=== PATIENT | female | born 1990 | race Caucasian/White ===

== ENCOUNTER 2016-12-17 19:14 | Emergency (ER) | payer OTHER ==
--- NOTE | 2016-12-17 19:50 | PDOC ---
Rapid Medical Evaluation Time Seen by Provider: 12/17/16 19:41 Medical Evaluation: Allergies Allergy/AdvReac Type Severity Reaction Status Date / Time No Known Allergies Allergy Verified 12/09/14 14:41 12/17/16 19:47 I have performed a brief in-person evaluation of this patient. The patient presents with a chief complaint of: back pain, 3 days of dysuria, + fever Pertinent physical exam findings: + rt cva tenderness, 102.8 in triage I have ordered the following: tylenol po ordered, UA, Ucx, cbc, comp, lactic, blood cx, iv insert The patient will proceed to the ED for further evaluation.
[2016-12-17] MEDS ORDERED: ACETAMINOPHEN 500 MG TABLET (FP) PO ONE (19:52)
[2016-12-17 19:54] VITALS: BMI 23.1
[2016-12-17] MEDS ORDERED: SODIUM CHLORIDE 1,000 ML IV STA ×2 (19:54→22:47)
[2016-12-17 20:16] LABS: BASOPHIL 0.4 % (0-2.0); MCH 29.3 pg (25.7-33.7); MEAN CELL VOLUME 86.2 fl (80-96); MEAN PLT VOLUME 8.1 fl (7.5-11.1); NEUTROPHILS 79.4 % (42.8-82.8); PLATELET COUNT 203 K/MM3 (134-434); RDW 13.9 % (11.6-15.6); WHITE BLOOD COUNT 8.6 K/mm3 (4.0-10.0)
--- NOTE | 2016-12-17 20:18 | PDOC ---
History of Present Illness - General History Source: Patient Exam Limitations: No Limitations - History of Present Illness Initial Comments: 12/17/16 20:22 The patient is a 26 year old female, with no significant past medical history, who presents to the emergency department complaining of burning with urination for approximately 5 days. The patient reports she initially began with dysuria 5 days ago, which resolved the next day. However, 3 days ago, the dysuria reocurred with associated lower back pain. Yesterday, patient reports developing diffuse abdominal pain, subjective fever, and nausea. She denies any associated vomiting, diarrhea, or constipation. She denies any hematuria, frequency, urgency, or vaginal discharge. She denies any chest pain, shortness of breath, diaphoresis, or palpitations. She denies any chills, headache, or dizziness. She denies any history of kidney stones or UTIs. She reports her last menstrual period was about 1 month ago, and she does not think she is . Allergies: NKDA Past Surgical History: None reported Social History: Non smoker. No ETOH or recreational drug use. <Addy Medeiros - Last Filed: 12/17/16 23:16> - General History Source: Patient <BeltranMaryAkhil - Last Filed: 12/18/16 00:06> - General Chief Complaint: Back Pain Stated Complaint: PCP SENT/BACK PAIN Time Seen by Provider: 12/17/16 19:41 Past History <Addy Medeiros - Last Filed: 12/17/16 23:16> - Past Medical History Asthma: No Cancer: No Cardiac Disorders: No COPD: No Diabetes: No HTN: No Seizures: No Thyroid Disease: No - Suicide/Smoking/Psychosocial Hx Smoking History: Never smoked Have you smoked in the past 12 months: No Information on smoking cessation initiated: No Hx Alcohol Use: No Drug/Substance Use Hx: No Substance Use Type: None Hx Substance Use Treatment: No <Akhil Veras - Last Filed: 12/18/16 00:06> - Past Medical History Allergies/Adverse Reactions: Allergies Allergy/AdvReac Type Severity Reaction Status Date / Time No Known Allergies Allergy Verified 12/17/16 19:53 Home Medications: Ambulatory Orders Vit/Iron Fumarate/FA [ Tablet] 1 each PO DAILY 12/09/14 Acetaminophen [Tylenol .Regular Strength -] 650 mg PO Q3H PRN #0 tablet Benzocaine [Americaine 20% [place] -] 1 spray TP PRN PRN #0 bottle 12/10/14 Ferrous Sulfate [Feosol] 325 mg PO BID #60 ud 12/10/14 Ibuprofen [Motrin -] 200 mg PO Q4H PRN #0 tablet 12/10/14 Vitamins (Sjr) - 1 tab PO DAILY #30 tablet 12/10/14 Witch Michelle 50% (Tucks) [Tucks Pads -] 1 pad TP PRN PRN #0 pad 12/10/14 Ibuprofen [Motrin -] 600 mg PO TID #30 tablet 12/18/16 Levofloxacin [Levaquin -] 500 mg PO DAILY #7 tablet 12/18/16 Review of Systems - Review of Systems Able to Perform ROS?: Yes Comments:: 12/17/16 20:22 CONSTITUTIONAL: Present: fever Absent: no chills, no fatigue EYES: Absent: visual changes ENT: Absent: ear pain, no sore throat CARDIOVASCULAR: Absent: chest pain, no palpitations RESPIRATORY: Absent: cough, no SOB GI: Present: nausea, abdominal pain Absent: no vomiting, no constipation, no diarrhea GENITOURINARY: Present: dysuria Absent: no frequency, no hematuria, no vaginal discharge MUSCULOSKELETAL: Present: lower back pain Absent: no arthralgia, no myalgia SKIN: Absent: rash NEURO: Absent: headache <Medeiros,Giomilsy - Last Filed: 12/17/16 23:16> *Physical Exam - Vital Signs Last Vital Signs Temp Pulse Resp BP Pulse Ox 102.8 F H 125 H 20 121/49 100 12/17/16 19:48 12/17/16 19:48 12/17/16 19:48 12/17/16 19:48 12/17/16 19:48 - Physical Exam Comments: 12/17/16 20:22 GENERAL: Well-appearing, well-nourished. No apparent distress. HEENT: Normocephalic, atraumatic. PERRL, EOM intact. CARDIOVASCULAR: Normal S1, S2. Tachycardic. Regular rhythm. PULMONARY: Clear to auscultation bilaterally. ABDOMEN: Soft, non-distended, non-tender. EXTREMITIES: Normal ROM in all four extremities. No gross deformities. BACK: Right CVA tenderness. SKIN: Warm, dry. No rash NEUROLOGICAL: No focal neurological deficits. <Addy Medeiros - Last Filed: 12/17/16 23:16> - Vital Signs Last Vital Signs Temp Pulse Resp BP Pulse Ox 102.8 F H 125 H 20 121/49 100 12/17/16 19:48 12/17/16 19:48 12/17/16 19:48 12/17/16 19:48 12/17/16 19:48 <Akhil Veras - Last Filed: 12/18/16 00:06> ED Treatment Course - LABORATORY CBC & Chemistry Diagram: 12/17/16 20:00 12/17/16 20:00 - ADDITIONAL ORDERS Additional order review: 12/17/16 20:00 RBC 4.49 MCV 86.2 MCHC 34.0 RDW 13.9 D MPV 8.1 Neutrophils % 79.4 Lymphocytes % 11.4 D Monocytes % 8.8 D Eosinophils % 0.0 Basophils % 0.4 D - RADIOLOGY Radiograph Interpretation: 12/17/16 23:16 EXAM: CT Abdomen and Pelvis INTERPRETED BY: Dr. Hoyos REVIEWED BY: Dr. Veras IMPRESSION: No CT evidence of urolithiasis or obstructive uropathy. There is equivocal subtle diffuse right renal parenchymal swelling. If clinically indicated additional evaluation utilizing contrast enhanced CT or MRI may be performed. There is minimal to mild thickening of the upper most aspect of the right ureter adjacent to the ureteropelvic junction. A small amount of free fluid is noted within the right lower pelvis posteriorly. - Medications Given in the ED: ED Medications Discontinued Medications Generic Name Dose Route Start Last Admin Trade Name Freq PRN Reason Stop Dose Admin Acetaminophen 1,000 mg 12/17/16 19:52 12/17/16 19:54 Tylenol - PO 12/17/16 19:53 1,000 mg ONCE ONE Administration <Addy Medeiros - Last Filed: 12/17/16 23:16> - LABORATORY CBC & Chemistry Diagram: 12/17/16 20:00 12/17/16 20:00 - Medications Given in the ED: ED Medications Discontinued Medications Generic Name Dose Route Start Last Admin Trade Name Freq PRN Reason Stop Dose Admin Acetaminophen 1,000 mg 12/17/16 19:52 12/17/16 19:54 Tylenol - PO 12/17/16 19:53 1,000 mg ONCE ONE Administration <Akhil Veras - Last Filed: 12/18/16 00:06> Medical Decision Making - Medical Decision Making 12/18/16 00:03 Dr. Veras: The scribe's documentation has been prepared under my direction and personally reviewed by me in its entirery. I confirm that the note above accurately reflects all work, treatment, procedures, and medical decision making performed by me. Symptoms have improved since pt has been treated here in the department. Pt pain is now about a scale of 1. Pt will be discharged and advised to take medication as directed. Rx Levaquin 500mg po Qd. Motrin 600mg PO sent to pharmacy <Akhil Veras - Last Filed: 12/18/16 00:06> *DC/Admit/Observation/Transfer - Attestations Scribe Attestion: 12/17/16 20:23 Documentation prepared by Addy Medeiros, acting as medical practice manager for Akhil Veras DO. <Addy Medeiros - Last Filed: 12/17/16 23:16> - Discharge Dispostion Admit: No <Akhil Veras - Last Filed: 12/18/16 00:06> Diagnosis at time of Disposition: Pyelonephritis UTI (urinary tract infection) Qualifiers: Urinary tract infection type: site unspecified Hematuria presence: without hematuria Qualified Code(s): N39.0 - Urinary tract infection, site not specified ; N39.0 - Urinary tract infection, site not specified - Discharge Dispostion Disposition: HOME Condition at time of disposition: Improved - Referrals Referrals: Cristina To MD [Primary Care Provider] - - Patient Instructions Printed Discharge Instructions: DI for Urinary Tract Infection (UTI), DI for Kidney Infection Print Language: BULGARIAN
[2016-12-17 20:47] LABS: ANION GAP 8 (8-16); BILIRUBIN,TOTAL 0.5 mg/dL (0.2-1.0); CALCIUM 9.1 mg/dL (8.5-10.1); CO2 25 mmol/L (21-32); CREATININE 0.8 mg/dL (0.55-1.02); GLUCOSE,RANDOM 96 mg/dL (74-106); SGPT/ALT 17 U/L (12-78); TOT PROT 7.9 g/dl (6.4-8.2)
[2016-12-17 20:48] LABS: ALK PHOS 92 U/L (45-117)
[2016-12-17 20:49] LABS: SGOT/AST 15 U/L (15-37)
[2016-12-17 21:11] LABS: URINE APPEARANCE CLOUDY; URINE BILIRUBIN NEGATIVE (NEGATIVE); URINE BLOOD 1+ (NEGATIVE); URINE COLOR YELLOW; URINE GLUCOSE (UA) NEGATIVE (NEGATIVE); URINE KETONE 2+ (NEGATIVE); URINE NITRITE POSITIVE (NEGATIVE); URINE PROTEIN 1+ (NEGATIVE); URINE UROBILINOGEN NEGATIVE mg/dL (0.2-1.0)
[2016-12-17 21:33] LABS: URINE BACTERIA RARE /hpf (NONE SEEN); URINE HYALINE CAST 2 /lpf; URINE MUCUS FEW; URINE RBC 9 /hpf (0-3); URINE WBC 283 /hpf (3-5)
[2016-12-17] MEDS ORDERED: cefTRIAXone SODIUM 1 GM VIAL ONE (21:46)
[2016-12-17 21:52] VITALS: BP 105/58; PULSE 84; TEMP 99
[2016-12-17 22:37] LABS: URINE LEUK ESTERASE 3+ (NEGATIVE)
[2016-12-17] MEDS ORDERED: KETOROLAC TROMETHAMINE 30 MG/1 ML VIAL IVPUSH ONE (23:15)
[2016-12-17] MEDS ORDERED: KETOROLAC TROMETHAMINE 30 MG/1 ML VIAL ONE (23:20)
--- NOTE | 2016-12-20 08:53 | PDOC ---
Patient Follow-up (Call Back) - Post ED Follow - Up Chief Complaint: Urinary Problem Condition at time of discharge: Improved Disposition at time of original discharge: HOME Reason for Call Back: Abnwl. Microbiology (Culture (+) for lactose fermenting neg bacilli. Pt. on Levofloxicin)
== END 2016-12-18 00:11 | disposition home or self-care (01) ==
LOC: JER 19:14
PROC: 3E0337Z Introduction of Electrolytic and Water Balance Substance into Peripheral Vein, Percutaneous Approach (ICD-10-PCS; principal; 2016-12-17)
PROC: 3E0233Z Introduction of Anti-inflammatory into Muscle, Percutaneous Approach (ICD-10-PCS; 2016-12-17)
PROC: 3E033NZ Introduction of Analgesics, Hypnotics, Sedatives into Peripheral Vein, Percutaneous Approach (ICD-10-PCS; 2016-12-17)
DX: N12 Tubulo-interstitial nephritis, not specified as acute or chronic (principal)
CPT/HCPCS: 36415; 74176; 80053; 81003; 81015; 83605; 84703; 85025; 87040; 87086; 87186; 99282-25